=== PATIENT | male | born 1995 | race Caucasian/White ===

== ENCOUNTER 2016-02-21 19:35 | Emergency (ER) | payer OTHER ==
[~2016-02-21 19:35] MED LIST: LEXA1TAB PO; MULT1TAB8 PO
[2016-02-21] MEDS ORDERED: ONDANSETRON 4 MG ORAL DISINTEGRATING TAB (S0181) As Ordered ONE (20:37)
--- NOTE | 2016-02-21 20:43 | EDDOCDS ---
Nurse's Notes [facility] Name: Rocky Stone Age: 20 yrs Sex: Male : 1995 Arrival Date: 02/21/2016 Time: 19:35 Bed TR8 Private MD: PRHans LEUNG Diagnosis: Nausea and vomiting Presentation: 02/20 19:39 Presenting complaint: Patient states: Yesterday started vomiting and continued today. [facility] Adult Sepsis Screening: The patient does not have new or worsening altered mentation. Patient's respiratory rate is less than 22. Systolic blood pressure is greater than 100. Patient has a qSOFA score of 0- Negative Sepsis Screen. Suicide/Homicide risk assessment- the patient denies having any suicidal and/or homicidal ideations and does not present with any other emotional, behavioral or mental health complaints. 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 Transition of care: patient was not received from another setting of care. 19:39 Acuity: ADITI Level [address] [facility] 19:39 Method Of Arrival: Walkin/Carried/Asstd [facility] Triage Assessment: 19:41 General: Appears in no apparent distress, Behavior is cooperative. Pain: Denies pain. [facility] HIV screening NA for this visit Offered previously. Neurological: No deficits noted. Respiratory: Airway is patent Respiratory effort is even, unlabored. GI: Reports nausea, vomiting. Derm: Skin is pink, warm & dry. Historical: - Allergies: shell fish; - Home Meds: 1. doxycycline hyclate 100 mg Oral cap 1 cap every 12 hours - PMHx: none; - PSHx: none; - Social history: Smoking status: Patient states former smoker of tobacco. No barriers to communication noted, The patient speaks fluent Liberian. - Family history: Not pertinent. - : The pt / caregiver states he / she is not on anticoagulants. Home medication list is obtained from the patient. - Exposure Risk Screening:: None identified. Screenin:40 Screening information is obtained from the patient. Fall risk: No risks identified. cz Assistance ADL's: requires no assistance with activities of daily living. Abuse/DV Screen: The patient / caregiver reports he/she is: not in a situation that causes fear, pain or injury. Nutritional screening: No deficits noted. Advance Directives: Currently, there is no health care proxy. There is no active DNR order. There is no living will. There is no Power of Deflash And Wash Operator. Advance directive information has not previously been placed in an [facility] medical record. Further advance directive information is declined. home support is adequate. Assessment: 20:40 Reassessment: Patient appears in no apparent distress at this time. General: alert male cz with N/V complaint no active vomiting. Vital Signs: 19:37 BP 145 / 74; Pulse 59; Resp 16; Temp 96.4(O); Pulse Ox 97% on R/A; Weight 77.11 kg; sew Height 5 ft. 11 in. (180.34 cm); Pain 5/10; 19:37 Body Mass Index 23.71 (77.11 kg, 180.34 cm) [facility] [place] Vitals: 19:37 Log In Time: February 21, 2016 at 19:37. [facility] [place] ED Course: 19:36 Patient visited by Elizabeth Milian. sew 19:36 [facility] is Private Physician. sew 19:36 Patient moved to Waiting sew 19:38 Patient visited by Elizabeth Milian. sew 19:38 Patient moved to Pre RCE sew 19:40 Triage Initiated mcp 19:42 Patient visited by Sarita Ladd RN. mcp 20:10 Patient moved to Triage 2 cz 20:23 Patient visited by Darleen Milligan PCA. jb5 20:26 [facility] cc10 20:26 William Philip DO is Attending Physician. cc10 20:26 Patient visited by Shashi Paul PA-C. cc10 20:26 Patient visited by Shashi Paul PA-C. cc10 20:31 [facility] is Referral Physician. cc10 20:39 Patient moved to TR8 cz 20:40 The patient / caregiver is instructed regarding the plan of care and ED course. cz 20:40 No IV's were initiated during this patient's visit. No procedures done that require cz assistance. Administered Medications: 20:40 Drug: Ondansetron ODT 4 mg [ondansetron 4 mg disintegrating tablet (1 tabs)] Route: PO; cz Order Results: There are currently no results for this order. Outcome: 20:31 Discharge ordered by Provider. cc10 20:40 Discharge Assessment: patient administered narcotics - no. The following High Risk cz Discharge criteria are identified: None. Discharged to home ambulatory. Condition: stable. Discharge instructions given to patient, Instructed on discharge instructions, follow up and referral plans. medication usage, Demonstrated understanding of instructions, medications, Pt was receptive of discharge instructions/ teaching. Prescriptions given X 1. No special radiology studies were completed. Property :Personal belongings accompany Pt. 20:43 Patient left the ED. cz Signatures: Sarita Ladd RN RN mcp Zecher, Calvin, RN RN cz Baker, Janet, PCA EDUCATION SUPERVISOR jb5 Elizabeth Milian Colin, PA-C PA-C cc10 MTDD
--- NOTE | 2016-02-21 20:43 | EDDOCDS ---
Physician Documentation [facility] Name: Rocky Stone Age: 20 yrs Sex: Male : 1995 Arrival Date: 02/21/2016 Time: 19:35 Bed TR8 Private MD: [facility] Disposition: 02/21/16 20:31 Discharged to Home/Self Care. Impression: Nausea and vomiting. - Condition is Stable. - Discharge Instructions: Nausea and Vomiting. - Prescriptions for ZOFRAN ODT 4 mg - dissolve 1 tablet by ORAL route 4 times per day As needed do not chew, do not swallow whole; 10 tablet. - Medication Reconciliation, Local Pharmacy Hours form. - Follow up: Emergency Department; When: As needed. Follow up: [facility]; When: Tomorrow; Reason: Wound/Symptom Recheck, Recheck today's complaints, Worsening of conditions, Continuance of care. - Problem is an ongoing problem. - Symptoms are unchanged. - Notes: Follow up with sick call in the AM for a recheck and possible change of medications. Historical: - Allergies: shell fish; - Home Meds: 1. doxycycline hyclate 100 mg Oral cap 1 cap every 12 hours - PMHx: none; - PSHx: none; - Social history: Smoking status: Patient states former smoker of tobacco. No barriers to communication noted, The patient speaks fluent Italian. - Family history: Not pertinent. - : The pt / caregiver states he / she is not on anticoagulants. Home medication list is obtained from the patient. - Exposure Risk Screening:: None identified. Vital Signs: 02/20 19:37 BP 145 / 74; Pulse 59; Resp 16; Temp 96.4(O); Pulse Ox 97% on R/A; Weight 77.11 kg / sew 170 lbs; Height 5 ft. 11 in. (180.34 cm); Pain 5/10; 19:37 Body Mass Index 23.71 (77.11 kg, 180.34 cm) sew MDM: 20:31 Ondansetron ODT Oral Disintegrating Tablet 4 mg PO once ordered. cc10 Administered Medications: 20:40 Drug: Ondansetron ODT 4 mg [ondansetron 4 mg disintegrating tablet (1 tabs)] Route: PO; cz Signatures: Sarita Ladd RN RN Bud Cuba RN RN Shashi Arrieta, PA-C PA-C cc10 MTDD
--- NOTE | 2016-02-25 09:52 | EDDOCDS ---
Nurse's Notes [facility] Name: Rocky Stone Age: 20 yrs Sex: Male : 1995 Arrival Date: 02/21/2016 Time: 19:35 Bed TR8 Private MD: FLHans LEUNG Diagnosis: Nausea and vomiting Presentation: 02/20 19:39 Presenting complaint: Patient states: Yesterday started vomiting and continued today. [facility] Adult Sepsis Screening: The patient does not have new or worsening altered mentation. Patient's respiratory rate is less than 22. Systolic blood pressure is greater than 100. Patient has a qSOFA score of 0- Negative Sepsis Screen. Suicide/Homicide risk assessment- the patient denies having any suicidal and/or homicidal ideations and does not present with any other emotional, behavioral or mental health complaints. 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 Transition of care: patient was not received from another setting of care. 19:39 Acuity: ADITI Level 3 [facility] 19:39 Method Of Arrival: Walkin/Carried/Asstd [facility] Triage Assessment: 19:41 General: Appears in no apparent distress, Behavior is cooperative. Pain: Denies pain. [facility] HIV screening NA for this visit Offered previously. Neurological: No deficits noted. Respiratory: Airway is patent Respiratory effort is even, unlabored. GI: Reports nausea, vomiting. Derm: Skin is pink, warm & dry. Historical: - Allergies: shell fish; - Home Meds: 1. doxycycline hyclate 100 mg Oral cap 1 cap every 12 hours - PMHx: none; - PSHx: none; - Social history: Smoking status: Patient states former smoker of tobacco. No barriers to communication noted, The patient speaks fluent Chadian. - Family history: Not pertinent. - : The pt / caregiver states he / she is not on anticoagulants. Home medication list is obtained from the patient. - Exposure Risk Screening:: None identified. Screenin:40 Screening information is obtained from the patient. Fall risk: No risks identified. cz Assistance ADL's: requires no assistance with activities of daily living. Abuse/DV Screen: The patient / caregiver reports he/she is: not in a situation that causes fear, pain or injury. Nutritional screening: No deficits noted. Advance Directives: Currently, there is no health care proxy. There is no active DNR order. There is no living will. There is no Power of Huller Operator. Advance directive information has not previously been placed in an [facility] medical record. Further advance directive information is declined. home support is adequate. Assessment: 20:40 Reassessment: Patient appears in no apparent distress at this time. General: alert male cz with N/V complaint no active vomiting. Vital Signs: 19:37 BP 145 / 74; Pulse 59; Resp 16; Temp 96.4(O); Pulse Ox 97% on R/A; Weight 77.11 kg; sew Height 5 ft. 11 in. (180.34 cm); Pain 5/10; 19:37 Body Mass Index 23.71 (77.11 kg, 180.34 cm) [facility] [place] Vitals: 19:37 Log In Time: February 21, 2016 at 19:37. [facility] [place] ED Course: 19:36 Patient visited by Elizabeth Milian. sew 19:36 [facility] is Private Physician. sew 19:36 Patient moved to Waiting sew 19:38 Patient visited by Elizabeth Milian. sew 19:38 Patient moved to Pre RCE sew 19:40 Triage Initiated mcp 19:42 Patient visited by Sarita Ladd RN. mcp 20:10 Patient moved to Triage 2 cz 20:23 Patient visited by Darleen Milligan PCA. jb5 20:26 Shashi Paul PA-C is PHCP. cc10 20:26 William Philip DO is Attending Physician. cc10 20:26 Patient visited by Shashi Paul PA-C. cc10 20:26 Patient visited by Shashi Paul PA-C. cc10 20:31 [facility] is Referral Physician. cc10 20:39 Patient moved to TR8 cz 20:40 The patient / caregiver is instructed regarding the plan of care and ED course. cz 20:40 No IV's were initiated during this patient's visit. No procedures done that require cz assistance. 20:47 [facility] [place] Payment Agreement was scanned into [employer] and attached to record. jp5 02/21 08:28 T-Sheet-- Draft Copy was scanned into [employer] and attached to record. seh Administered Medications: 02/20 20:40 Drug: Ondansetron ODT 4 mg [ondansetron 4 mg disintegrating tablet (1 tabs)] Route: PO; cz Order Results: There are currently no results for this order. Outcome: 20:31 Discharge ordered by Provider. cc10 20:40 Discharge Assessment: patient administered narcotics - no. The following High Risk cz Discharge criteria are identified: None. Discharged to home ambulatory. Condition: stable. Discharge instructions given to patient, Instructed on discharge instructions, follow up and referral plans. medication usage, Demonstrated understanding of instructions, medications, Pt was receptive of discharge instructions/ teaching. Prescriptions given X 1. No special radiology studies were completed. Property :Personal belongings accompany Pt. 20:43 Patient left the ED. cz Signatures: Sarita Ladd, RN RN Bud Cuba, RN RN Darleen Fowler, Elizabeth Abreu Colin, PA-C PAKamilah cc10 Kanwal Pat Sarah seh Chart Complete MTDBaudilio
--- NOTE | 2016-02-25 09:52 | EDDOCDS ---
Physician Documentation [facility] Name: Rocky Stone Age: 20 yrs Sex: Male : 1995 Arrival Date: 02/21/2016 Time: 19:35 Bed TR8 Private MD: [facility] [place] Disposition: 02/21/16 20:31 Discharged to Home/Self Care. Impression: Nausea and vomiting. - Condition is Stable. - Discharge Instructions: Nausea and Vomiting. - Prescriptions for ZOFRAN ODT 4 mg - dissolve 1 tablet by ORAL route 4 times per day As needed do not chew, do not swallow whole; 10 tablet. - Medication Reconciliation, Local Pharmacy Hours form. - Follow up: Emergency Department; When: As needed. Follow up: [facility] [place]; When: Tomorrow; Reason: Wound/Symptom Recheck, Recheck today's complaints, Worsening of conditions, Continuance of care. - Problem is an ongoing problem. - Symptoms are unchanged. - Notes: Follow up with sick call in the AM for a recheck and possible change of medications. Historical: - Allergies: shell fish; - Home Meds: 1. doxycycline hyclate 100 mg Oral cap 1 cap every 12 hours - PMHx: none; - PSHx: none; - Social history: Smoking status: Patient states former smoker of tobacco. No barriers to communication noted, The patient speaks fluent Yi. - Family history: Not pertinent. - : The pt / caregiver states he / she is not on anticoagulants. Home medication list is obtained from the patient. - Exposure Risk Screening:: None identified. Vital Signs: 02/20 19:37 BP 145 / 74; Pulse 59; Resp 16; Temp 96.4(O); Pulse Ox 97% on R/A; Weight 77.11 kg / sew 170 lbs; Height 5 ft. 11 in. (180.34 cm); Pain 5/10; 19:37 Body Mass Index 23.71 (77.11 kg, 180.34 cm) sew MDM: 20:31 Ondansetron ODT Oral Disintegrating Tablet 4 mg PO once ordered. cc10 20:47 [facility] [place] Agreement was scanned into [employer] and attached to record. jp5 20:47 Financial registration complete. jp5 02/21 08:28 T-Sheet-- Draft Copy was scanned into [employer] and attached to record. [facility] Administered Medications: 02/20 20:40 Drug: Ondansetron ODT 4 mg [ondansetron 4 mg disintegrating tablet (1 tabs)] Route: PO; cz Signatures: Sarita Ladd RN RN Bud Cuba RN RN Shashi Arrieta PA-C PA-C cc10 Kanwal Pat 5 Elizabeth Zhu [facility] The chart was reviewed and I authenticate all verbal orders and agree with the evaluation and treatment provided.Attachments: 20:47 [facility] Payment Agreement jp5 02/21 08:28 T-Sheet-- Draft Copy [facility] Chart Complete MTDD
--- NOTE | 2016-02-25 09:52 | EDDOCDS ---
Physician Documentation [facility] Name: Rocky Stone Age: 20 yrs Sex: Male : 1995 Arrival Date: 02/21/2016 Time: 19:35 Bed TR8 Private MD: [facility] [place] Disposition: 02/21/16 20:31 Discharged to Home/Self Care. Impression: Nausea and vomiting. - Condition is Stable. - Discharge Instructions: Nausea and Vomiting. - Prescriptions for ZOFRAN ODT 4 mg - dissolve 1 tablet by ORAL route 4 times per day As needed do not chew, do not swallow whole; 10 tablet. - Medication Reconciliation, Local Pharmacy Hours form. - Follow up: Emergency Department; When: As needed. Follow up: [facility] [place]; When: Tomorrow; Reason: Wound/Symptom Recheck, Recheck today's complaints, Worsening of conditions, Continuance of care. - Problem is an ongoing problem. - Symptoms are unchanged. - Notes: Follow up with sick call in the AM for a recheck and possible change of medications. Historical: - Allergies: shell fish; - Home Meds: 1. doxycycline hyclate 100 mg Oral cap 1 cap every 12 hours - PMHx: none; - PSHx: none; - Social history: Smoking status: Patient states former smoker of tobacco. No barriers to communication noted, The patient speaks fluent Macedonian. - Family history: Not pertinent. - : The pt / caregiver states he / she is not on anticoagulants. Home medication list is obtained from the patient. - Exposure Risk Screening:: None identified. Vital Signs: 02/20 19:37 BP 145 / 74; Pulse 59; Resp 16; Temp 96.4(O); Pulse Ox 97% on R/A; Weight 77.11 kg / sew 170 lbs; Height 5 ft. 11 in. (180.34 cm); Pain 5/10; 19:37 Body Mass Index 23.71 (77.11 kg, 180.34 cm) sew MDM: 20:31 Ondansetron ODT Oral Disintegrating Tablet 4 mg PO once ordered. cc10 20:47 [facility] [place] Payment Agreement was scanned into [employer] and attached to record. jp5 20:47 Financial registration complete. jp5 02/21 08:28 T-Sheet-- Draft Copy was scanned into [employer] and attached to record. [facility] Administered Medications: 02/20 20:40 Drug: Ondansetron ODT 4 mg [ondansetron 4 mg disintegrating tablet (1 tabs)] Route: PO; cz Signatures: Sarita Ladd RN RN Bud Cuba RN RN Shashi Arrieta PA-C PA-C cc10 Kanwal Pat 5 Elizabeth Zhu [facility] The chart was reviewed and I authenticate all verbal orders and agree with the evaluation and treatment provided.Attachments: 20:47 [facility] [place] Payment Agreement jp5 02/21 08:28 T-Sheet-- Draft Copy [facility] Chart Complete MTDD
== END 2016-02-21 21:04 | disposition home or self-care (01) ==
LOC: M ED 19:35
DX: R11.2 Nausea with vomiting, unspecified (principal); Z87.891 Personal history of nicotine dependence; Z79.899 Other long term (current) drug therapy; Z91.013 Allergy to seafood